=== PATIENT | female | born 1985 | race Caucasian/White ===

== ENCOUNTER 2018-06-09 00:26 | Inpatient (IN) | payer OTHER ==
[2018-06-09] MEDS ORDERED: EPSOM SALT 454 GM TP PRN (03:30)
[2018-06-09] MEDS ORDERED: MISOPROSTOL 200 MCG TAB PR PRN (03:30)
[2018-06-09] MEDS ORDERED: OXYTOCIN/RINGERS LACTATE 1,000 ML IV PRN (03:30)
[2018-06-09] MEDS ORDERED: AMPICILLIN SODIUM 2 GM in NS 100 ML IV ONE (03:30)
[2018-06-09] MEDS ORDERED: LR 1,000 ML IV PRN (03:30)
[2018-06-09] MEDS ORDERED: TERBUTALINE SULFATE 1 MG/ML VIAL IV PRN (03:30)
[2018-06-09] MEDS ORDERED: OLIVE OIL 118 ML BTL MISC PRN (03:30)
[2018-06-09] MEDS ORDERED: IBUPROFEN 600 MG TAB PO PRN (03:30)
[2018-06-09] MEDS ORDERED: LIDOCAINE 1% 300 MG/30 ML SDV SC PRN (03:30)
[2018-06-09] MEDS ORDERED: OLIVE OIL 118 ML BTL ONE (03:38)
[2018-06-09] MEDS ORDERED: LIDOCAINE 1% 300 MG/30 ML SDV ONE (03:38)
[2018-06-09] MEDS ORDERED: AMMONIA AROMATIC 1 EACH AMP IH ONE (03:39)
[2018-06-09] MEDS ORDERED: OXYTOCIN 10 UNIT/ML VIAL ONE (03:39)
[2018-06-09] MEDS ORDERED: TERBUTALINE SULFATE 1 MG/ML VIAL ONE (03:39)
[2018-06-09 04:19] LABS: PLATELET COUNT 273 10^3/uL (150-400)
--- NOTE | 2018-06-09 04:38 | PDGENHP ---
History and Physical - Chief Complaint contractions - History of Present Illness 33 at 39w1d by LMP c/w 9 wk US, here with contractions. Ctxns started yesterday at 0200, and gradually progressed, becoming more intense around 2200. No LOF, no VB. No ssx PIH. On arrival here - was 3-4 cm dilated, and 3 hours later had progressed to 6 cm dilated with a BBOW. course c/b: Bilateral pyelectasis - resolved at 29 wk. Had nl echo due to hx of pt's sis with congen heart defect. care at [facility]. labs all wnl, including Neg Innatal, neg Std panel, O pos, Rub Imm. GBS POSITIVE. History Information - Allergies/Home Medication List Allergies/Adverse Reactions: iodine [Iodine] Allergy (Verified 12/31/09 15:27) shellfish derived Allergy (Verified 06/09/18 00:55) Home Medications: Iron 06/09/18 [Last Taken 06/06/18 09:00] 06/09/18 [Last Taken 06/06/18 21:00] I have personally reviewed and updated: family history, medical history, social history, surgical history - Past Medical History Additional medical history: hx of elevated LFTs with neg hepatitis eval prior to preg and normal LFTs during . - Surgical History Additional surgical history: L knee 2012. LEEP 2006. wisdom teeth - Family History Positive for: cancer (MGM - breast and pancreatic) Additional family history: M - depression. F - EtOH abuse. 1/2 Sis - congen heart defect - Social History Smoking Status: Never smoked Alcohol Use: None Drug Use: None Review of Systems Review of Systems: ROS: 10pt was reviewed & negative except for what was stated in HPI & below Physical Exam Physical Exam: 36.8 91 136/90, 120/86, 120/87 FHR 130 reactive, Cat 1 toco - q 2-3 min SVE per RN done at 0036 = 3-4 cm dilated at 0324 = 6 cm dilated with BBOW Constitutional: no apparent distress (when not having a contraction), appears nourished Eyes: PERRL, anicteric sclera, EOMI Ears, Nose, Mouth, Throat: moist mucous membranes, hearing normal, ears appear normal Cardiovascular: regular rate and rhythym Respiratory: no respiratory distress, no rales or rhonchi, clear to auscultation Gastrointestinal: soft, non-tender abdomen (fundus c/w 39 wk, nontender when not barron) Skin: warm, normal color Musculoskeletal: full muscle strength Neurologic: AAOx3 Psychiatric: interacting appropriately Lab Data & Imaging Review 06/09/18 04:00 Assessment & Plan Assessment: Imp: 31 at 39w1d in active labor. GBS positive. Plan: admit, OK for pain control as desired. Ampicillin for GBS pos. Anticipate vaginal delivery. Report to be given to Dr. Sands at 0600 and she will assume care at 0700. Ira Centeno MD, FACOG [facility]
--- NOTE | 2018-06-09 07:40 | OBPROG ---
Labor Progress Note Assessment/Plan: Assessment: Plan: Subjective/Intrapartum Course: 06/09/18 07:35 patient comfortable with nitrous and repositioning. membranes still intact. second dose of abx due at 830. will discuss arom if desired after second dose. patient is getting tired. small amount of bloody show Objective: 06/09/18 04:00 Patient ABO/Rh O POSITIVE 06/09/18 04:00 - SVE Membranes: Intact - Contraction Pattern Assessment Current Contraction Pattern: Regular - FHR Assessment [place] FHR Pattern Variability: Moderate FHR Category: 1 - AP Antepartum Course: 06/09/18 07:37 dated by lmp equal to 9 week ultrasound. initiated care with [facility] at 9 weeks. negative genetic testing. half sister - congenital heart issues. normal echo. hx leep. normal cervical length. right renal pylectasis at echo. normal at repeat ultrasound. hx elevatged lfts - elevated prepregnancy. normal in . gbs positive. spontaneous labor. Oxytocin Orders Assessment - Pre-Induction/Augmentation Assessment Gestational Age: 39 week(s) and 1 day(s)
[2018-06-09] MEDS: AMPICILLIN SODIUM 1 GM in NS 100 ML IV SCH ×2 (08:02→12:07)
--- NOTE | 2018-06-09 08:49 | OBPROG ---
Labor Progress Note Assessment/Plan: Assessment: Plan: Subjective/Intrapartum Course: 06/09/18 07:35 patient comfortable with nitrous and repositioning. membranes still intact. second dose of abx due at 830. will discuss arom if desired after second dose. patient is getting tired. small amount of bloody show 06/09/18 08:47 patient more uncomfortable. has received second dose of antibiotics. AROM - small amount of clear fluid. sve 6-7.100/0. Patient disappointed as she was last told she was 8 cm. using nitrous. will get in tub. considering epidural. questions about placenta encapsulation. advised against secondary to gbs positive and no proven benefits. Objective: 06/09/18 04:00 Patient ABO/Rh O POSITIVE 06/09/18 04:00 - SVE Dilation (cm): 6, 7 Effacement (%): 90 Station: 0 Membranes: AROM Amniotic Fluid Color: Clear - Contraction Pattern Assessment Current Contraction Pattern: Regular - Procedures Non-surgical Procedures: Amniotomy - AP Antepartum Course: 06/09/18 07:37 dated by lmp equal to 9 week ultrasound. initiated care with [facility] at 9 weeks. negative genetic testing. half sister - congenital heart issues. normal echo. hx leep. normal cervical length. right renal pylectasis at echo. normal at repeat ultrasound. hx elevatged lfts - elevated prepregnancy. normal in . gbs positive. spontaneous labor. Oxytocin Orders Assessment - Pre-Induction/Augmentation Assessment Gestational Age: 39 week(s) and 1 day(s) ICD10 Worksheet Patient Problems: Problems Problem Status Onset Normal labor Acute
[2018-06-09] MEDS ORDERED: BUPIVACAINE 0.25% 30 ML SDV ONE (09:01)
[2018-06-09] MEDS ORDERED: fentaNYL 2MCG/ML/BUP 0.1% RTU 100 ML BAG EP ONE (09:01)
[2018-06-09] MEDS ORDERED: PHENYLEPHRINE HCL 100 MCG/ML SYR ONE (09:01)
[2018-06-09] MEDS ORDERED: fentaNYL 100 MCG/2 ML INJ ONE (09:02)
[2018-06-09] MEDS ORDERED: PHENYLEPHRINE HCL 100 MCG/ML SYR IVP PRN (10:09)
[2018-06-09] MEDS ORDERED: ONDANSETRON 4 MG/2 ML VIAL IVP PRN (10:09)
--- NOTE | 2018-06-09 10:09 | PREANESOB ---
Obstetric Pre-Anesthesia Info - General Info Proposed Procedure: Labor and delivery. : 2 Para: 0 MITCHELL: 06/15/18 Gestational Age: 39 week(s) and 1 day(s) - Info Status: Full Term Monitors: External FHR Baseline (bpm): 140 FHR Pattern: Reassuring - Labor Status Cervical Dilation per last OB SVE: 6, 7 Station per last OB SVE: 0 Amniotic Fluid Color: Clear Indications for Labor Analgesia: Pain Control Labor Epidural: Proposed Anesthesia ROS: [place] teeth and general anesthesia for knee surgery. Allergies/Adverse Reactions: Allergy/AdvReac Type Severity Reaction Status Date / Time iodine [Iodine] Allergy Verified 12/31/09 15:27 shellfish derived Allergy Verified 06/09/18 00:55 Home Medications: Medication Instructions Recorded Iron 06/09/18 06/09/18 Visit Medications: Generic Name Dose Route Start Last Admin Trade Name Freq PRN Reason Stop Dose Admin Ampicillin Sodium 1 gm/ Sodium 100 mls @ 200 mls/hr 06/09/18 08:30 06/09/18 08:02 Chloride IV 07/09/18 08:29 100 mls Q4H BAILEE Administration Protocol Lactated Ringer's 1,000 mls @ 0 mls/hr 06/09/18 03:30 Lr IV 06/10/18 03:29 PRN PRN SEE PROTOCOL CONDITIONS Protocol Per Protocol Oxytocin/Lactated Ringer's 1,000 mls @ 125 mls/hr 06/09/18 03:30 Pitocin 20 Units/Lr (Premix) IV PRN PRN Post bleeding Ibuprofen 600 mg 06/09/18 03:30 Motrin PO ONCE PRN post , pain Lidocaine HCl 300 mg 06/09/18 03:30 Lidocaine Hcl 1% SC 12/06/18 03:29 ONCE PRN episiotomy Magnesium Sulfate 454 gm 06/09/18 03:30 Epsom Salt TP 12/06/18 03:29 Q1H PRN perineal discomfort Misoprostol 800 - 1,000 mcg 06/09/18 03:30 Cytotec AL ONCE PRN Vaginal Atony/Bleeding Lawn Oil 118 ml 06/09/18 03:30 Sweet Oil MISC 12/06/18 03:29 ONCE PRN perineal massage Terbutaline Sulfate 0.25 mg 06/09/18 03:30 Brethine IV 12/06/18 03:29 ONCE PRN Tachysystole Discontinued Medications Generic Name Dose Route Start Last Admin Trade Name Freleandro PRN Reason Stop Dose Admin Ammonia (Aromatic Spirit) Confirm 06/09/18 03:39 Ammonia Aromatic Administered 06/09/18 03:40 Dose 1 each IH .STK-MED ONE Bupivacaine HCl Confirm 06/09/18 09:01 Sensorcaine 0.25% Sdv Administered 06/09/18 09:02 Dose 30 ml .ROUTE .STK-MED ONE Fentanyl Confirm 06/09/18 09:02 Sublimaze Administered 06/09/18 09:03 Dose 100 mcg .ROUTE .STK-MED ONE Fentanyl/Bupivacaine HCl Confirm 06/09/18 09:01 Fentanyl/Bupivacaine/Ns 2 Mcg/Ml 0.1% (Premix Administered 06/09/18 09:02 Dose 100 ml EP .STK-MED ONE Ampicillin Sodium 2 gm/ Sodium 110 mls @ 220 mls/hr 06/09/18 03:30 06/09/18 04:32 Chloride IV 06/09/18 03:59 110 mls ONCE ONE Administration Protocol Lidocaine HCl Confirm 06/09/18 03:38 Lidocaine Hcl 1% Administered 06/09/18 03:39 Dose 300 mg .ROUTE .STK-MED ONE Lawn Oil Confirm 06/09/18 03:38 Sweet Oil Administered 06/09/18 03:39 Dose 118 ml .ROUTE .STK-MED ONE Oxytocin Confirm 06/09/18 03:39 Pitocin Administered 06/09/18 03:40 Dose 40 unit .ROUTE .STK-MED ONE Phenylephrine HCl Confirm 06/09/18 09:01 Neosynephrine Administered 06/09/18 09:02 Dose 1,000 mcg .ROUTE .STK-MED ONE Terbutaline Sulfate Confirm 06/09/18 03:39 Brethine Administered 06/09/18 03:40 Dose 1 mg .ROUTE .STK-MED ONE - Anesthesia History Response to Local Anesthetics: Normal Anesthesia & Operative History: No Prior Problems Family Anesthesia History: Negative - Social History Substance Use/Abuse: Denies - Vital Signs Blood Pressure: 145/89 Heart Rate: 94 Height/Weight (Nursing): Height 157.48 cm Weight 82.1 kg - Focused Exam Neck exam: FROM Mallampati Score: Class 1 Mouth exam: normal dental/mouth exam Pulmonary: no respiratory distress Cardiovascular: regular rate and rhythym Labs: 06/09/18 04:00 Patient ABO/Rh O POSITIVE 06/09/18 04:00 - Plan Anesthetic Plan: CSE Consent Signed and on Chart: Yes Patient/Guardian Understands and Agrees to Plan: Yes Urgent/Emergent Case: Clinton cardenas completed preop but documented later for safe timely pt care
--- NOTE | 2018-06-09 10:09 | POSTANESTH ---
Post Anesthetic Evaluation Cardiovascular Status: Normal, Stable, Similar to Pre-Op Cond Respiratory Status: Normal, Stable, Similar to Pre-op Cond. Level of Consciousness/Mental Status: Can Participate in Eval, Alert and Oriented Pain Control: Adequate, Prn Tx Ordered Nausea/Vomiting Control: Adequate, Prn Tx Ordered Complications Possibly Related to Anesthesia: None Noted
[2018-06-09] MEDS ORDERED: fentaNYL 2MCG/ML/BUP 0.1% RTU 100 ML EP SCH (10:30)
[2018-06-09] MEDS ORDERED: LR 500 ML IV SCH (10:30)
--- NOTE | 2018-06-09 13:08 | OBPROG ---
Labor Progress Note Assessment/Plan: Assessment: Plan: Subjective/Intrapartum Course: 06/09/18 07:35 patient comfortable with nitrous and repositioning. membranes still intact. second dose of abx due at 830. will discuss arom if desired after second dose. patient is getting tired. small amount of bloody show 06/09/18 08:47 patient more uncomfortable. has received second dose of antibiotics. AROM - small amount of clear fluid. sve 6-7.100/0. Patient disappointed as she was last told she was 8 cm. using nitrous. will get in tub. considering epidural. questions about placenta encapsulation. advised against secondary to gbs positive and no proven benefits. 06/09/18 13:07 patient comfortable. sve - complete and +1. started pushing. having some variables with pushing. overall status reassuring. Objective: 06/09/18 04:00 Patient ABO/Rh O POSITIVE 06/09/18 04:00 Temp Pulse Resp BP Pulse Ox 94 145/89 H 06/09/18 10:09 06/09/18 10:09 - SVE Dilation (cm): 10 Effacement (%): 100 Station: +1 Membranes: AROM Amniotic Fluid Color: Clear - Contraction Pattern Assessment Current Contraction Pattern: Regular - Procedures Non-surgical Procedures: Amniotomy - AP Antepartum Course: 06/09/18 07:37 dated by lmp equal to 9 week ultrasound. initiated care with [facility] at 9 weeks. negative genetic testing. half sister - congenital heart issues. normal echo. hx leep. normal cervical length. right renal pylectasis at echo. normal at repeat ultrasound. hx elevatged lfts - elevated prepregnancy. normal in . gbs positive. spontaneous labor. Oxytocin Orders Assessment - Pre-Induction/Augmentation Assessment Gestational Age: 39 week(s) and 1 day(s) ICD10 Worksheet Patient Problems: Problems Problem Status Onset Normal labor Acute
[2018-06-09] MEDS ORDERED: SIMETHICONE 80 MG TAB CHEW PO PRN (15:59)
[2018-06-09] MEDS ORDERED: HYDROCORTISONE 0.5% CREAM TP PRN (15:59)
[2018-06-09] MEDS ORDERED: HYDROCODONE/APAP 5/325 TAB PO PRN (15:59)
--- NOTE | 2018-06-09 15:59 | OBDEL ---
Info Type: Vaginal Presentation at Delivery: Vertex L&D Analgesia/Anesthesia Type: Epidural GBS+: Yes Antibiotic Used for + GBS: Ampicillin Intrapartum Medications: Generic Name Dose Route Start Last Admin Trade Name Freleandro PRN Reason Stop Dose Admin Ampicillin Sodium 1 gm/ Sodium 100 mls @ 200 mls/hr 06/09/18 08:30 06/09/18 12:07 Chloride IV 07/09/18 08:29 100 mls Q4H BAILEE Administration Protocol Discontinued Medications Generic Name Dose Route Start Last Admin Trade Name Freleandro PRN Reason Stop Dose Admin Ampicillin Sodium 2 gm/ Sodium 110 mls @ 220 mls/hr 06/09/18 03:30 06/09/18 04:32 Chloride IV 06/09/18 03:59 110 mls ONCE ONE Administration Protocol Oxytocin/Lactated Ringer's 1,000 mls @ 125 mls/hr 06/09/18 03:30 06/09/18 15: 35 Pitocin 20 Units/Lr (Premix) IV 1,000 mls PRN PRN Administration Post bleeding - Hospital Course Intrapartum: 06/09/18 07:35 patient comfortable with nitrous and repositioning. membranes still intact. second dose of abx due at 830. will discuss arom if desired after second dose. patient is getting tired. small amount of bloody show 06/09/18 08:47 patient more uncomfortable. has received second dose of antibiotics. AROM - small amount of clear fluid. sve 6-7.100/0. Patient disappointed as she was last told she was 8 cm. using nitrous. will get in tub. considering epidural. questions about placenta encapsulation. advised against secondary to gbs positive and no proven benefits. 06/09/18 13:07 patient comfortable. sve - complete and +1. started pushing. having some variables with pushing. overall status reassuring. Indications for Delivery: Spontaneous Labor Vaginal Delivery - Delivery Provider Delivery Physician/CNM: Elizabeth Sands - Labor and Delivery Onset of Contractions Date: 06/08/18 Onset of Contractions Time: 22:30 Onset of Contractions Type: Spontaneous Rupture of Membranes Date: 06/09/18 Rupture of Membranes Time: 08:39 Rupture of Membranes Type: Artificial Amniotic Fluid Color: Clear Dilation Complete Date: 06/09/18 Dilation Complete Time: 12:34 Placenta Delivery Date: 06/09/18 Placenta Delivery Time: 15:31 Total Hours of Labor: 17 Non-surgical Procedures: Amniotomy Laceration: 2nd Degree Repair: 3-0 Vaginal Sponge Count Correct: Yes Vaginal Needle Count Correct: Yes Vaginal Sweep Performed: No EBL: 200 Delivery Events: None Data MITCHELL: 06/15/18 Gestational Age: 39 week(s) and 1 day(s) [place] Delivery Date: 06/09/18 Delivery Time: 15:27 Sex of : Female Score (1 Min): 8 Score (5 Min): 9 ICD10 Worksheet Patient Problems: Problems Problem Status Onset Normal labor Acute
[2018-06-09] MEDS: ACETAMINOPHEN 325 MG TAB PO SCH ×2 (16:30→22:28)
[2018-06-09] MEDS ORDERED: LR 1,000 ML IV ONE (20:30)
[2018-06-09 20:46] LABS: PLATELET COUNT 228 10^3/uL (150-400)
--- NOTE | 2018-06-09 20:57 | OBPP ---
Progress Note Assessment/Plan: Assessment: ppd# 0 breast feeding tachycardia - asymptomatic - tsh - cbc - anemia - iron bid - fluid bolus - ekg - sinus tachycardia 06/09/18 20:54 06/09/18 20:56 Subjective/ Course: 06/09/18 20:55 phone call from rn. patient has tachycardia but is feeling well. is afebrile. denies lightheadedness or dizziness. is tired but cannot sleep. cbc, tsh, ekg and urine culture ordered. ekg showed sinus tachycardia. will get fluid bolus. iron ordered from the am. breast feeding is going well. cbc showed anemia. Objective: 06/09/18 20:34 Patient ABO/Rh O POSITIVE 06/09/18 04:00 Temp Pulse Resp BP Pulse Ox 36.3 C 135 H 16 122/81 H 96 06/09/18 19:52 06/09/18 19:52 06/09/18 19:52 06/09/18 19:52 06/09/18 19:52
[2018-06-09] MEDS: FERRO-SEQUELS 65 MG TAB.ER PO SCH (21:12)
[2018-06-09] MEDS: IBUPROFEN 600 MG TAB PO SCH (22:22)
[2018-06-10] MEDS: IBUPROFEN 600 MG TAB PO SCH ×4 (05:06→22:51)
[2018-06-10] MEDS: ACETAMINOPHEN 325 MG TAB PO SCH ×4 (09:40→21:58)
[2018-06-10] MEDS: FERRO-SEQUELS 65 MG TAB.ER PO SCH ×2 (09:40→21:12)
[2018-06-10] MEDS: DOCUSATE SODIUM 100 MG CAP PO PRN (09:40)
--- NOTE | 2018-06-10 10:08 | OBPP ---
Progress Note Assessment/Plan: Assessment: 33 y/o PPD #1 s/p with an episode of tachycardia last night. Plan: Pulse has improved this am after IVF bolus and initiating po iron. Studies were reassuring, urine Cx pending. support and routine PPC. 06/10/18 10:08 Subjective/ Course: 06/09/18 20:55 phone call from rn. patient has tachycardia but is feeling well. is afebrile. denies lightheadedness or dizziness. is tired but cannot sleep. cbc, tsh, ekg and urine culture ordered. ekg showed sinus tachycardia. will get fluid bolus. iron ordered from the am. breast feeding is going well. cbc showed anemia. 06/10/18 10:04 Pt is doing much better this am. She denies dizziness, palpitations or lightheadness. She is ambulating and voiding without difficulty and has min lochia today. Baby is doing well and they are working on latching. She is tolerating reg diet and has a good appetite. Objective: 06/09/18 20:34 Patient ABO/Rh O POSITIVE 06/09/18 04:00 Temp Pulse Resp BP Pulse Ox 36.2 C 100 16 111/78 95 06/10/18 08:00 06/10/18 08:00 06/10/18 08:00 06/10/18 08:00 06/10/18 08:00 Uterine Position/Fundal Height: Umbilicus -2 Uterine Tone: Firm Physical Exam - Physical Exam General Appearance: alert, no apparent distress Neck: non-tender, full range of motion, supple Respiratory: chest non-tender, lungs clear, normal breath sounds Cardiac/Chest: regular rate, rhythm Abdomen: normal bowel sounds Extremities: swelling (tr), Madiha's sign (neg)
[2018-06-11] MEDS: ACETAMINOPHEN 325 MG TAB PO SCH (05:52)
[2018-06-11] MEDS: IBUPROFEN 600 MG TAB PO SCH (05:52)
[2018-06-11 08:18] VITALS: BP 102/72
[2018-06-11] MEDS: DOCUSATE SODIUM 100 MG CAP PO PRN (09:09)
[2018-06-11] MEDS: FERRO-SEQUELS 65 MG TAB.ER PO SCH (09:09)
--- NOTE | 2018-06-11 09:57 | OBPP ---
Progress Note Assessment/Plan: Assessment: PPD 2 s/p anemia Plan: D/C home, iron BID 06/11/18 09:49 Subjective/ Course: 06/09/18 20:55 phone call from rn. patient has tachycardia but is feeling well. is afebrile. denies lightheadedness or dizziness. is tired but cannot sleep. cbc, tsh, ekg and urine culture ordered. ekg showed sinus tachycardia. will get fluid bolus. iron ordered from the am. breast feeding is going well. cbc showed anemia. 06/10/18 10:04 Pt is doing much better this am. She denies dizziness, palpitations or lightheadness. She is ambulating and voiding without difficulty and has min lochia today. Baby is doing well and they are working on latching. She is tolerating reg diet and has a good appetite. 06/11/18 09:50 Pt doing well. harder night last noc with BF and pt tired. baby seems to have good latch and not too tender. bottom sore but ok with tucs pads and ibu/tyl. urinating fine. bld is very light and a lot of BF. Not dizzy with ambulation. given caution about anemia and will take iron. Objective: 06/09/18 20:34 Patient ABO/Rh O POSITIVE 06/09/18 04:00 Temp Pulse Resp BP Pulse Ox 36.2 C 87 15 102/72 96 06/11/18 08:00 06/11/18 08:00 06/11/18 08:00 06/11/18 08:00 06/11/18 08:00 Uterine Position/Fundal Height: Umbilicus -1 Uterine Tone: Firm Physical Exam - Physical Exam Abdomen: non-tender, soft, other (FF at umb) Extremities: non-tender, pedal edema (moderate) Skin: normal color, warm/dry Neuro/Psych: alert, normal mood/affect
--- NOTE | 2018-06-11 10:10 | OBGCSDC ---
General Delivery Information - General Info : 2 Para: 1 Abortions: 1 Type: Vaginal L&D Analgesia/Anesthesia Type: Epidural, Local Admission Date: 06/09/18 Labs: Patient ABO/Rh O POSITIVE 06/09/18 04:00 Hct 28.2 % (38.0-47.0) L 06/09/18 20:34 - Hospital Course Antepartum: 06/09/18 07:37 dated by lmp equal to 9 week ultrasound. initiated care with [facility] at 9 weeks. negative genetic testing. half sister - congenital heart issues. normal echo. hx leep. normal cervical length. right renal pylectasis at echo. normal at repeat ultrasound. hx elevatged lfts - elevated prepregnancy. normal in . gbs positive. spontaneous labor. Intrapartum: 06/09/18 07:35 patient comfortable with nitrous and repositioning. membranes still intact. second dose of abx due at 830. will discuss arom if desired after second dose. patient is getting tired. small amount of bloody show 06/09/18 08:47 patient more uncomfortable. has received second dose of antibiotics. AROM - small amount of clear fluid. sve 6-7.100/0. Patient disappointed as she was last told she was 8 cm. using nitrous. will get in tub. considering epidural. questions about placenta encapsulation. advised against secondary to gbs positive and no proven benefits. 06/09/18 13:07 patient comfortable. sve - complete and +1. started pushing. having some variables with pushing. overall status reassuring. : 06/09/18 20:55 phone call from rn. patient has tachycardia but is feeling well. is afebrile. denies lightheadedness or dizziness. is tired but cannot sleep. cbc, tsh, ekg and urine culture ordered. ekg showed sinus tachycardia. will get fluid bolus. iron ordered from the am. breast feeding is going well. cbc showed anemia. 06/10/18 10:04 Pt is doing much better this am. She denies dizziness, palpitations or lightheadness. She is ambulating and voiding without difficulty and has min lochia today. Baby is doing well and they are working on latching. She is tolerating reg diet and has a good appetite. 06/11/18 09:50 Pt doing well. harder night last noc with BF and pt tired. baby seems to have good latch and not too tender. bottom sore but ok with tucs pads and ibu/tyl. urinating fine. bld is very light and a lot of BF. Not dizzy with ambulation. given caution about anemia and will take iron. Vaginal - Delivery Provider Delivery Physician/CNM: Elizabeth Sands - Diagnosis Labor: Spontaneous Rupture of Membranes Type: Artificial Amniotic Fluid Color: Clear Laceration: 2nd Degree Repair: 3-0 Delivery Events: None - Procedures Non-surgical Procedures: Amniotomy - Delivery Non-surgical Procedures: Amniotomy EBL: 200 [place] Data MITCHELL: 06/15/18 Gestational Age: 39 week(s) and 3 day(s) [place] Delivery Date: 06/09/18 Delivery Time: 15:27 Sex of Infant: Female [place] Weight (gm): 3108 g Score (1 Min): 8 Score (5 Min): 9 Discharge Information - Discharge Information Condition: Good Instruction/Follow Up: See Instruction Sheet, Four Weeks (2-4 wks with therapist ), Six Weeks (with Sands)
--- NOTE | 2018-06-15 14:44 | CPEKG ---
Test Reason : tachycardia Blood Pressure : / mmHG Vent. Rate : 117 BPM Atrial Rate : 118 BPM P-R Int : 115 ms QRS Dur : 078 ms QT Int : 310 ms P-R-T Axes : 058 038 017 degrees QTc Int : 433 ms Sinus tachycardia Low voltage, precordial leads Borderline T abnormalities, anterior leads Confirmed by Carlton Lester ([id number]) on 06/15/2018 2:44:17 PM Referred By: Confirmed By:Carlton Lester
== END 2018-06-11 11:15 | disposition home or self-care (01) | DRG 807 ==
LOC: FLD 00:26 → OBSVTOIN 16:14 → FOB 18:00
PROVIDERS: ADMIT Hospitalist; ATTEND Obstetrics & Gynecology
PROC: 0KQM0ZZ Repair Perineum Muscle, Open Approach (ICD-10-PCS; principal; 2018-06-09)
PROC: 10907ZC Drainage of Amniotic Fluid, Therapeutic from Products of Conception, Via Natural or Artificial Opening (ICD-10-PCS; principal; 2018-06-09)
PROC: 10E0XZZ Delivery of Products of Conception, External Approach (ICD-10-PCS; principal; 2018-06-09)
DX: O70.1 Second degree perineal laceration during delivery (principal); O99.824 Streptococcus B carrier state complicating childbirth; O90.81 Anemia of the puerperium; Z3A.39 39 weeks gestation of pregnancy; Z37.0 Single live birth
CPT/HCPCS: J0290; J2370; J2590; J3010; J3105

== ENCOUNTER → 2018-07-31 | Outpatient (CLI) | payer OTHER | LOC: FLACT 13:06 | PROVIDERS: ATTEND Obstetrics & Gynecology | DX: Z39.1 Encounter for care and examination of lactating mother (principal) | CPT/HCPCS: G0463 ==